=== PATIENT | female | born 1945 | race Caucasian/White ===

== ENCOUNTER → 2018-04-21 10:03 | Outpatient (CLI) | payer MEDICARE, OTHER, SELFPAY ==
--- NOTE | 2018-04-21 | DI.CT.S_ITS ---
PROCEDURE: CT CHEST HIGH RESOLUTION INDICATIONS: SARCOIDOSIS TECHNIQUE: Noncontrast 1.0 and 5.0 mm thick contiguous axial sections from the pulmonary apex to the posterior costophrenic angles, with 7 mm thick coronal and sagittal MIP reformats. 1 mm thick dynamic expiratory images acquired through the upper, mid, and lower lungs. 1.0 mm thick axial sections acquired from the alissa to the posterior costophrenic angles in the prone end-inspiration position. For radiation dose reduction, the following was used: automated exposure control, adjustment of mA and/or kV according to patient size. COMPARISON: None. FINDINGS: Image quality: Excellent. Lungs: There is interstitial lung disease with mild alveolitis and a pulmonary fibrotic pattern superimposed density over the lower lungs and present to a lesser degree of the middle and upper thirds of the lung parenchyma. Patchy alveolar scarring and fibrotic change is greater along the periphery of the lungs then centrally. No bronchiectasis or pulmonary mass lesion is suspected. Pleura: No pleural effusions or pneumothorax. Mediastinum: Heart size is normal. No pericardial effusion. Thoracic aorta and central pulmonary arteries are normal in size. Esophagus is normal in caliber. Bones and chest wall: No suspicious bony lesions. No vertebral body compression fractures. Abdomen: Visualized upper abdominal solid organs and bowel loops appear normal. 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 No active pneumonia is suspected. No underlying mediastinal or hilar adenopathy is found. Bronchiectasis is not associated. Dictated by: Richard Barrera M.D. on 04/21/2018 at 12:11 Approved by: Richard Barrera M.D. on 04/21/2018 at 12:14
== END ==
PROVIDERS: PCP Family Medicine; Visit Provider Internal Medicine
DX: D86.9 Sarcoidosis, unspecified (principal)
CPT/HCPCS: 71250

== ENCOUNTER → 2020-01-10 08:51 | Outpatient (CLI) | payer MEDICARE, OTHER, SELFPAY ==
--- NOTE | 2020-01-15 08:28 | PM.PFT.1 ---
Pulmonary Function Test Referral & Results Date Patient Seen: 01/10/20 Requesting provider: Martell Mai Results: The spirometry demonstrates an FVC of 2.22 L which is 76% of predicted. The FEV1 was measured at 1.80 L which is 82% of predicted. The FEV1/FVC ratio was 81 which is 108% of predicted. Following the administration of bronchodilator there was a 19% improvement in FEF 25-75%. Lung volumes show an SVC of 2.38 which is 83% of predicted. The diffusing capacity was measured at 9.57 which is 37% of predicted. No hemoglobin value was provided, so no correction for potential anemia could be made, if appropriate. The maximum voluntary ventilation was reduced Interpretation: This study demonstrates perhaps mild obstructive lung disease based on minimal reduction FEV1 and minimal improvement in small airway flow based on improvement in FEF 25-75% as above, as well as shape a flow volume curve Lung volumes are probably normal but may show slight decrease in SVC suggesting perhaps minimal restrictive lung disease There is a severe reduction in diffusing capacity suggesting significant disease at the capillary alveolar level to the point where patient may well be hypoxic on room air at times Clinical correlation suggested
== END ==
PROVIDERS: PCP Family Medicine; Referring Provider Internal Medicine; Visit Provider Internal Medicine
DX: D86.89 Sarcoidosis of other sites (principal)
CPT/HCPCS: 94060; 94726; 94729

== ENCOUNTER → 2020-04-29 09:09 | Outpatient (CLI) | payer MEDICARE, OTHER, SELFPAY ==
--- NOTE | 2020-04-29 | DI.MRI.S_ITS ---
PROCEDURE: MR LUMBAR SPINE WO CON INDICATIONS: Neuralgic amyotrophy TECHNIQUE: Noncontrast sagittal T1 spin echo and T2 fast echo, sagittal STIR, axial T1 and T2 fast spin echo through the lumbar spine. In cases with scoliosis, additional coronal T2 fast spin echo may be performed. COMPARISON: None. FINDINGS: Image quality: Excellent. Alignment and Curvature: There is mild L4-L5 anterolisthesis secondary to facet hypertrophy. Bone Marrow: Marrow is of normal overall signal. No acute vertebral body compression fractures. Spinal Cord: Conus medullaris terminates at the L1-2 disc level. Visualized cord demonstrates normal signal and size. Paraspinous Soft Tissues: No paravertebral masses. L1-L2: Normal appearance. L2-L3: Loss of disc signal. Mild, diffuse disc bulge. No central stenosis. No neural foraminal narrowing. No neural compression. L3-L4: Loss of disc signal. Mild, diffuse disc bulge. No central stenosis. Mild bilateral neural foraminal narrowing. No neural compression. L4-L5: Loss of disc signal and height. Mild, diffuse disc bulge. Severe bilateral facet hypertrophy. Severe ligamentum flavum hypertrophy. Severe narrowing of the central canal with compression of the nerve roots of the cauda equina. Moderate bilateral neural foraminal narrowing. L5-S1: Loss of disc signal and height. Mild, diffuse disc bulge. Moderate bilateral facet hypertrophy. Mild narrowing of the central canal. Moderate right and moderate to severe left neural foraminal narrowing with slight compression of the exiting left L5 nerve root. IMPRESSION: 1. Grade 1 L4-L5 degenerative spondylolisthesis. 2. Multilevel degenerative disc disease. 3. Multilevel facet arthropathy. 4. Severe L4-L5 central canal narrowing with compression of the nerve roots of the cauda equina. 5. Moderate to severe right L5-S1 neural foraminal narrowing with slight compression exiting left L5 nerve root. Dictated by: Karena Moreno MD, PhD on 04/29/2020 at 12:10 Approved by: Karena Moreno MD, PhD on 04/29/2020 at 12:14
== END ==
PROVIDERS: PCP Specialist; Referring Provider Specialist; Visit Provider Specialist
DX: G54.5 Neuralgic amyotrophy (principal); M43.16 Spondylolisthesis, lumbar region; M48.07 Spinal stenosis, lumbosacral region; M54.41 Lumbago with sciatica, right side; G89.29 Other chronic pain
CPT/HCPCS: 72148

== ENCOUNTER → 2020-07-24 12:33 | Outpatient (CLI) | payer MEDICARE, OTHER, SELFPAY ==
--- NOTE | 2020-07-24 | DI.MRI.S_ITS ---
PROCEDURE: MR CERVICAL SPINE WO CON INDICATIONS: Cervicalgia TECHNIQUE: Noncontrast sagittal T1 spin echo and T2 fast spin echo, sagittal STIR, foraminal oblique sagittal T2 fast spin echo, and axial gradient echo or T2 fast spin echo through the cervical spine. COMPARISON: None. FINDINGS: Image quality: Excellent. Alignment and Curvature: There is trace anterolisthesis of C3 on C4, C7 on T1, trace retrolisthesis of C5 on C6. Bone Marrow: Marrow demonstrates normal overall signal. Minimal reactive endplate changes are present at C4-5, C5-6 and C6-7. Spinal Cord: Visualized spinal cord has normal size and signal. No cerebellar tonsillar herniation. Paraspinous Soft Tissues: No paravertebral masses. Prevertebral soft tissues are normal in thickness. Discs: Moderate desiccation is present at C4-5 through to C6-7. C2-C3: Mild disc bulge without spinal stenosis. Moderate bilateral foraminal narrowing with uncovertebral hypertrophy. C3-C4: Mild disc bulge with slight effacement of the anterior thecal sac. Moderate bilateral foraminal narrowing, left greater than right with uncovertebral hypertrophy. C4-C5: Mild disc bulge with moderate spinal stenosis. Moderate to severe bilateral foraminal narrowing with uncovertebral hypertrophy. C5-C6: Mild disc bulge with superimposed left posterior paracentral protrusion. Moderate spinal stenosis is present. Moderate to severe right and severe left foraminal narrowing with uncovertebral hypertrophy. C6-C7: Mild disc bulge with moderate to severe spinal stenosis. Severe bilateral foraminal narrowing left greater than right with uncovertebral hypertrophy. C7-T1: No disc bulge, spinal stenosis or foraminal narrowing. IMPRESSION: 1. Multilevel disc bulges. 2. Multilevel foraminal narrowing most severe at C6-7 secondary to uncovertebral arthropathy. 3. Multilevel spinal stenosis most severe at C6-7 secondary to disc bulge. Dictated by: Zaria Elizalde M.D. on 07/24/2020 at 15:23 Approved by: Zaria Elizalde M.D. on 07/24/2020 at 15:27
== END ==
PROVIDERS: PCP Specialist; Referring Provider Neurological Surgery; Visit Provider Neurological Surgery
DX: M50.21 Other cervical disc displacement, high cervical region (principal); M48.02 Spinal stenosis, cervical region
CPT/HCPCS: 72141

== ENCOUNTER → 2020-11-28 10:41 | Outpatient (CLI) | payer MEDICARE, OTHER, SELFPAY | PROVIDERS: PCP Specialist; Visit Provider Physician Assistant Medical | DX: M54.9 Dorsalgia, unspecified (principal); G89.29 Other chronic pain; Z91.89 Other specified personal risk factors, not elsewhere classified | CPT/HCPCS: 87077; 87086; 87186 ==

== ENCOUNTER → 2020-12-25 09:51 | Outpatient (CLI) | payer MEDICARE, OTHER, SELFPAY ==
[2020-12-25 19:48] LABS: Add Manual Diff / Slide Review NO; Basophils Absolute Auto 0 /uL (0-100); Basophils Percent Auto 0.1 % (0-2); Eosinophils Absolute Auto 100 /uL (0-450); Eosinophils Percent Auto 1.3 % (2-4); Hematocrit 41.1 % (36-46); Lymphocytes Absolute Auto 2100 /uL (1100-4500); Lymphocytes Percent Auto 21.8 % (25-40); Mean Corpuscular Hemoglobin 30.7 PG (26-34); Mean Corpuscular Volume 90.2 fL (80-100); Monocytes Absolute Auto 700 /uL (0-900); Monocytes Percent Auto 6.8 % (3-14); Neutrophils Absolute Auto 6800 /uL (1500-7000); Platelet Count 256 X10^3/uL (150-400); Red Blood Cell Count 4.56 X10^6/uL (4.0-5.2); Red Cell Distribution Width 14.3 % (11.6-14.8); White Blood Cell Count 9.7 X10^3/uL (4.5-11.0)
[2020-12-25 19:55] LABS: Alanine Aminotransferase 17 IU/L (<35); Albumin 3.9 g/dL (3.5-5.0); Albumin Globulin Ratio 1.4 (1.0-2.8); Alkaline Phosphatase 71 U/L (38-126); Aspartate Aminotransferase 31 IU/L (14-36); BUN Creatinine Ratio 22.5 (6-22); Bilirubin Total 0.6 mg/dL (0.2-1.3); Blood Urea Nitrogen 16 mg/dL (7-17); Calcium 9.2 mg/dL (8.4-10.2); Carbon Dioxide 27 mmol/L (22-32); Chloride 103 mmol/L (98-107); Estimated Glomerular Filt Rate > 60.0 mL/min (>60); Globulin 2.7 g/dL (1.7-4.1); Glucose 79 mg/dL (80-110); HEMOLYSIS < 15 (0-50); Potassium 4.3 mmol/L (3.4-5.1); Sodium 137 mmol/L (137-145); Total Protein 6.6 g/dL (6.3-8.2)
== END ==
PROVIDERS: PCP Specialist; Visit Provider Physician Assistant Medical
DX: N39.0 Urinary tract infection, site not specified (principal); M85.80 Other specified disorders of bone density and structure, unspecified site; D86.0 Sarcoidosis of lung; D86.9 Sarcoidosis, unspecified; I49.3 Ventricular premature depolarization; N93.9 Abnormal uterine and vaginal bleeding, unspecified; R06.02 Shortness of breath; Z12.31 Encounter for screening mammogram for malignant neoplasm of breast; Z91.89 Other specified personal risk factors, not elsewhere classified
CPT/HCPCS: 80053; 85025; 87077; 87086; 87147

== ENCOUNTER → 2021-01-01 10:58 | Outpatient (CLI) | payer MEDICARE, OTHER, SELFPAY ==
[2021-01-01 11:54] LABS: COVID19 -Nasal RAPID Negative (Negative)
== END ==
PROVIDERS: PCP Specialist; Referring Provider Internal Medicine; Visit Provider Internal Medicine
DX: D86.0 Sarcoidosis of lung (principal)
CPT/HCPCS: 87635; C9803

== ENCOUNTER → 2021-01-01 11:01 | Outpatient (CLI) | payer MEDICARE, OTHER, SELFPAY ==
--- NOTE | 2021-01-07 11:01 | PM.PFT.1 ---
Pulmonary Function Test Referral & Results Date Patient Seen: 01/01/21 Requesting provider: Martell Mai Results: The spirometry demonstrates an FVC of 2.04 L which is 72% of predicted. The FEV1 was measured at 1.87 L which is 88% of predicted. The FEV1/FVC ratio was 92 which is 123% of predicted. Following the administration of bronchodilator there was no appreciable change. Lung volumes show an SVC of 2.48 L which is 88% of predicted. The diffusing capacity was measured at 10.72 which is 41% of predicted. No hemoglobin value was provided, so no correction for potential anemia could be made, if appropriate. The maximum voluntary ventilation was slightly reduced Interpretation: This study demonstrates probably normal spirometry but significantly reduced diffusing capacity suggesting significant disease at the capillary alveolar level Compared to PFTs performed in December 2019, spirometry is essentially unchanged, and diffusing capacity is also essentially unchanged from previous
== END ==
PROVIDERS: PCP Specialist; Referring Provider Physician Assistant Medical; Visit Provider Physician Assistant Medical
DX: M85.852 Other specified disorders of bone density and structure, left thigh (principal); Z82.62 Family history of osteoporosis; Z78.0 Asymptomatic menopausal state; D86.0 Sarcoidosis of lung; Z20.822 Contact with and (suspected) exposure to COVID-19
CPT/HCPCS: 77080; 87635; 94060; 94726; 94729; C9803

== ENCOUNTER → 2021-01-21 14:59 | Outpatient (CLI) | payer MEDICARE, OTHER, SELFPAY ==
--- NOTE | 2021-01-21 | DI.US.S_ITS ---
PROCEDURE: US PELVIC COMPLETE INDICATIONS: POSTMENOPAUSAL BLEEDING TECHNIQUE: Real-time scanning was performed of the pelvic organs, with image documentation. Additional endovaginal scanning was necessary due to incomplete visualization of the adnexal and endometrial structures by transabdominal scanning. COMPARISON: [facility], , PELVIC COMPLETE, 10/09/2013, 11:51. FINDINGS: Uterus: Uterus is normal in size at 7.8 x 4.7 x 3.4 cm. The endometrium measures 4.2 mm in combined thickness. Punctate echogenic foci associated with the endometrial complex. No definitive endometrial mass seen. 2 intramural fibroids, largest measuring 1.6 cm. Mild amount of complex endocervical fluid present and the cervical wall appears heterogeneous in appearance. Ovaries: Right ovary is not visualized. Mildly thick-walled 7 mm left ovarian cyst. No free fluid. Other: No pathologic free abdominal or pelvic fluid. IMPRESSION: 1. Endometrial complex within normal limits in thickness with multiple associated punctate echogenic foci which may be related to residual blood products. Recommend short-term follow-up pelvic ultrasound in 6 weeks to assess for interval resolution. 2. Small amount of endocervical fluid and heterogeneous appearance of the cervical wall which also can be reassessed on follow-up examination. Dictated by: Manny MACIEL Interpreted: Richard Barrera MD on 01/21/2021 at 15:48 Transcribed by: CARA on 01/21/2021 at 15:51 Approved by: Richard Barrera M.D. on 01/21/2021 at 16:01
== END ==
PROVIDERS: PCP Specialist; Referring Provider Obstetrics & Gynecology; Visit Provider Obstetrics & Gynecology
DX: N95.0 Postmenopausal bleeding (principal); D25.9 Leiomyoma of uterus, unspecified
CPT/HCPCS: 76830; 76856

== ENCOUNTER → 2022-03-17 07:52 | Outpatient (CLI) | payer MEDICARE, OTHER, SELFPAY ==
--- NOTE | 2022-03-17 | DI.ECHO.S_ITS ---
[facility] +---------+ : : [address] : [place] : : : : [id number] : : : : Phone: [phone]---------+ Echocardiogram Report + + :Name: JAZMYNE HUNG Study Date: 03/17/2022 Height: 64 in : :[facility] ReadingLocation: Weight: 131 lb : : Gender: Female BSA: 1.6 m2 : :: 1945 Age: 76 yrs BP: 134/79 mmHg: :Reason For Study: DYSPNEA : :Ordering Physician: GERALD, : :BREANNE Performed By: Roslyn Lino : :Referring: BREANNE DUARTE : + + Interpretation Summary The patient was in sinus rhythm with heart rates between 56-65 bpm during the exam. Normotensive during exam The left ventricle is normal in size and wall thickness. The ejection fraction is estimated to be 55-60%. Indeterminate diastolic function The left atrium is moderately dilated. The right atrium is severely dilated. There is mild to moderate mitral regurgitation. There is mild aortic regurgitation. There is moderate tricuspid regurgitation. The right ventricular systolic pressure is estimated to be at least 49 mmHg based on an estimated right atrial pressure of 3 mm Hg. No prior study for comparison. Procedure: A two-dimensional transthoracic echocardiogram with color flow and Doppler was performed. The study quality was technically adequate. There is no prior echocardiogram noted for this patient. The patient was in sinus rhythm with heart rates between 56-65 bpm during the exam. Normotensive during exam. Left Ventricle: The left ventricle is normal in size and wall thickness. The ejection fraction is estimated to be 55-60%. Indeterminate diastolic function. Right Ventricle: The right ventricle is normal in size, thickness and function. The right ventricular systolic function is normal. Atria: The left atrium is moderately dilated. The right atrium is severely dilated. There is no Doppler evidence for an interatrial shunt. Mitral Valve: There is a flat closure plane of the the mitral valve leaflets. The mitral valve leaflets are slightly calcified. There is mild to moderate mitral regurgitation. Aortic Valve: The aortic valve is trileaflet. The aortic valve opens well. There is no aortic valve stenosis. There is mild aortic regurgitation. Tricuspid Valve: There is moderate tricuspid regurgitation. The right ventricular systolic pressure is estimated to be at least 49 mmHg based on an estimated right atrial pressure of 3 mm Hg. Pulmonic Valve: The pulmonic valve is not well visualized. There is no pulmonic valvular regurgitation. Great Vessels: The aortic root is normal size. The dimensions of the ascending aorta are normal. The IVC is of normal diameter and collapses greater than 50% with a sniff. This suggests a low right atrial pressure of 3 mm Hg. Pericardium/ Pleura There is no pericardial effusion. There is no pleural effusion. MMode/2D Measurements & Calculations LVIDd: 4.4 cm LVOT diam: 2.3 cm LVIDs: 3.0 cm Ao root diam: 3.2 cm FS: 32.5 % asc Aorta Diam: 3.0 cm IVSd: 0.74 cm Ao Arch Diam (Prox Trans): 2.7 cm LVPWd: 0.75 cm LV canchola. diameter/BSA (cm/m^2): 2.7 LV sys. diameter/BSA (cm/m^2): 1.8 LA A2 area: 23.0 cm2 RA long axis: 5.3 cm LA A4 area: 24.1 cm2 RA area: 23.2 cm2 LA length (vol): 6.4 cm RA vol: 85.7 ml LA vol: 73.5 ml RA : 52.5 ml/m2 LA vol index: 45.0 ml/m2 IVC diam: 1.3 cm RVD1 (basal): 4.2 cm RVD2 (mid): 3.5 cm TAPSE: 2.9 cm Doppler Measurements & Calculations Ao V2 max: 116.0 cm/sec LVOT Max Dustin: 89.4 cm/sec Ao V2 mean: 79.6 cm/sec LV V1 max P.2 mmHg Ao max P.4 mmHg LV V1 VTI: 20.1 cm Ao mean P.8 mmHg JOE(I,D): 3.2 cm2 Ao V2 VTI: 26.4 cm JOE(V,D): 3.2 cm2 sev ratio: 0.76 JOE indexed to BSA (cm^2/m^2): 1.9 MV E max dustin: 114.0 cm/sec TR max dustin: 338.8 cm/sec MV A max dustin: 29.3 cm/sec TR max P.9 mmHg MV E/A: 3.9 PA V2 max: 72.5 cm/sec Med Peak E' Dustin: 8.0 cm/sec PA V2 mean: 48.3 cm/sec E/E' med: 14.3 PA mean P.1 mmHg Lat Peak E' Dustin: 10.9 cm/sec PA pr(Accel): 25.9 mmHg E/E' lat: 10.4 E/e' average: 12.4 MV dec time: 0.17 sec SV(OT): 83.9 ml Reading Physician:WARREN
== END ==
PROVIDERS: PCP Specialist; Referring Provider Internal Medicine; Visit Provider Internal Medicine
DX: R06.00 Dyspnea, unspecified (principal); I08.3 Combined rheumatic disorders of mitral, aortic and tricuspid valves
CPT/HCPCS: 93306

== ENCOUNTER → 2022-03-31 10:54 | Outpatient (CLI) | payer MEDICARE, OTHER, SELFPAY ==
[2022-03-31 12:38] LABS: Alanine Aminotransferase 30 IU/L (<35); Albumin 4.3 g/dL (3.5-5.0); Albumin Globulin Ratio 1.4 (1.0-2.8); Alkaline Phosphatase 68 U/L (38-126); Aspartate Aminotransferase 41 IU/L (14-36); BUN Creatinine Ratio 27.3 (6-22); Bilirubin Total 0.6 mg/dL (0.2-1.3); Blood Urea Nitrogen 21 mg/dL (7-17); Calcium 8.9 mg/dL (8.4-10.2); Carbon Dioxide 29 mmol/L (22-32); Chloride 103 mmol/L (98-107); Estimated Glomerular Filt Rate > 60 mL/min (>60); Globulin 3.1 g/dL (1.7-4.1); Glucose 106 mg/dL (80-110); HEMOLYSIS < 15 (0-50); Potassium 3.8 mmol/L (3.4-5.1); Sodium 140 mmol/L (137-145); Total Protein 7.4 g/dL (6.3-8.2)
[2022-03-31 12:43] LABS: NT-proBNP (BNP-Adult 18+) 463 pg/mL (<450)
== END ==
PROVIDERS: PCP Specialist; Referring Provider Nurse Practitioner; Visit Provider Nurse Practitioner
DX: R06.09 Other forms of dyspnea (principal); I47.1 Supraventricular tachycardia; I36.1 Nonrheumatic tricuspid (valve) insufficiency; I34.0 Nonrheumatic mitral (valve) insufficiency
CPT/HCPCS: 36415; 80053; 83880

== ENCOUNTER → 2022-04-19 10:28 | Outpatient (CLI) | payer MEDICARE, OTHER, SELFPAY | PROVIDERS: PCP Family Medicine; Visit Provider Family Medicine | DX: N23 Unspecified renal colic (principal) | CPT/HCPCS: 87077; 87086; 87186 ==